=== PATIENT | male | born 1960 | race Caucasian/White ===

== ENCOUNTER 2017-10-28 09:43 | Emergency (ER) | payer SELFPAY ==
[~2017-10-28] VITALS: Ht 170.2 cm; Wt 76.3 kg
[~2017-10-28 09:43] MED LIST: ILOTYCIN1 GM LEFT EYE
[2017-10-28] MEDS ORDERED: NAPROSYN500 MG PO (12:56)
[2017-10-28 13:13] VITALS: BP 147/87
== END 2017-10-28 13:14 | disposition home or self-care (01) ==
LOC: EME 09:43
DX: S23.41XA Sprain of ribs, initial encounter (principal); X50.0XXA Overexertion from strenuous movement or load, initial encounter; Y92.89 Other specified places as the place of occurrence of the external cause; Y99.0 Civilian activity done for income or pay
CPT/HCPCS: 71020; 99281; 99282